=== PATIENT | female | born 1955 | race Caucasian/White ===

== ENCOUNTER 2020-04-21 18:05 | Emergency (ER) | payer MEDICAID ==
[~2020-04-21] VITALS: Ht 157.5 cm; Wt 64.5 kg
[2020-04-21] MEDS ORDERED: CITA-144 PO (18:11)
[2020-04-21] MEDS ORDERED: LEVO25TA9 PO (18:11)
[2020-04-21 19:04] VITALS: BP 122/79
== END 2020-04-21 19:24 | disposition home or self-care (01) ==
LOC: EMS 18:05
DX: Z20.828 Contact with and (suspected) exposure to other viral communicable diseases (principal); F32.9 Major depressive disorder, single episode, unspecified
CPT/HCPCS: 99283; U0003

== ENCOUNTER 2020-04-27 11:35 | Emergency (ER) | payer MEDICAID ==
[~2020-04-27] VITALS: Ht 154.9 cm; Wt 64.5 kg
[~2020-04-27 11:35] MED LIST: CITA-144 PO; LEVO25TA9 PO
[2020-04-27 13:12] VITALS: BP 118/70
== END 2020-04-27 13:13 | disposition home or self-care (01) ==
LOC: EMS 11:35
DX: Z20.828 Contact with and (suspected) exposure to other viral communicable diseases (principal); F32.9 Major depressive disorder, single episode, unspecified
CPT/HCPCS: 99283; U0003